=== PATIENT | male | born 1995 | race Caucasian/White ===

== ENCOUNTER → 2017-07-03 | Outpatient (CLI) | payer BC ==
--- NOTE | 2017-07-03 17:42 | US ---
EXAMINATION TYPE: US scrotum with doppler. Grayscale and color Doppler Duplex imaging performed of t lauri scrotum. DATE OF EXAM: 07/03/2017 COMPARISON: NONE CLINICAL HISTORY: N50.819 Testicular Pain. EXAM MEASUREMENTS: TESTICLES: Right Testicle: 3.5 x 2.3 x 2.3 cm Left Testicle: 3.9 x 2.1 x 1.8 cm EPIDIDYMIS HEAD: Right Epididymis: 0.7 cm Left Epididymis: 0.9 cm Doppler performed to assess for testicular vascularity; good bilateral color flow and waveforms are s een. There is no evidence of testicular torsion. Presence of hydroceles: no Presence of varicoceles: no Increased vascularity and heterogeneous right epididymis, probable epididymitis, preliminary results given to Elvira at Dr. Minor's office. IMPRESSION: No testicular torsion or mass. Relative hyperemia in the right epididymis is suspicious f or epididymitis.
== END ==
LOC: RADUSMAIN 16:50
PROVIDERS: ATTEND Family Medicine
DX: N50.82 Scrotal pain (principal); N50.819 Testicular pain, unspecified
CPT/HCPCS: 76870; 93975